=== PATIENT | male | born 1950 | race Caucasian/White ===

== ENCOUNTER → 2020-04-15 | Outpatient (BNVA) | payer MEDICARE, OTHER, SELFPAY | PROVIDERS: PCP Nurse Practitioner Family; Visit Provider Internal Medicine | DX: Z86.73 Personal history of transient ischemic attack (TIA), and cerebral infarction without residual deficits (principal) | CPT/HCPCS: 85610; 99211 ==

== ENCOUNTER → 2020-04-29 09:30 | Outpatient (BNVA) | payer MEDICARE, OTHER, SELFPAY | PROVIDERS: PCP Nurse Practitioner Family; Visit Provider Internal Medicine | DX: I63.9 Cerebral infarction, unspecified (principal); Z51.81 Encounter for therapeutic drug level monitoring; Z79.01 Long term (current) use of anticoagulants | CPT/HCPCS: 85610; 99211 ==

== ENCOUNTER 2020-05-03 09:44 | Outpatient (REF) | payer MEDICARE, OTHER, SELFPAY ==
--- NOTE | 2020-05-03 09:48 | CT_ITS ---
EXAMINATION: CT CHEST SCREENING CLINICAL INFORMATION: Lung screening. COMPARISON: CT chest 05/20/2019. TECHNIQUE: Multidetector volumetric CT imaging of the chest is performed without contrast using low dose technique. Additional 2D coronal and sagittal reformatted images and axial 3D maximum intensity projection (MIP) images are generated on the CT workstation. This CT examination was performed using dose optimization techniques as appropriate, variously including the following: *Automated exposure control *Adjustment of mA and/or kV according to patient size (this includes techniques or standardized protocols for targeted exams where dose is matched to indication/reason for exam; i.e. extremities or head) *Use of iterative reconstruction technique DLP: 238 mGy-cm FINDINGS: LUNGS: Hyperinflated lungs with emphysematous changes. There are bilateral apical pleural/parenchymal thickening, ground-glass attenuation and several nodules. The largest nodule left upper lobe posteriorly measures 5 mm and a 3 mm nodule right upper lobe axial image 14/4. Some of the nodules in the right lung apex have increased in size. Numerous cystic changes are seen in both lung apices. There are 2 mm calcified nodules left upper lobe image 162/6, right upper lobe image 222/6, noncalcified 3 mm ground-glass nodule right upper lobe image 206/6, a few more calcified nodules left lower lobe image 286/6, 2 mm nodule left lower lobe centrally image 310/6, 2 mm calcified nodule right lung base, axial image 492/6. MEDIASTINUM: The thyroid lobes are symmetrical and normal. The central trachea and the bronchi are widely patent. No abnormal size mediastinal or hilar lymph node seen. There are coronary artery calcifications present. No pericardial effusion seen. PLEURA: There is no pleural effusion. No pleural mass or thickening. AXILLA: Small shotty lymph nodes seen in the axilla. The largest lymph node right axilla measures 1 cm. Punctate calcifications seen in the left axilla. UPPER ABDOMEN: Visualized liver/spleen, pancreas and bilateral adrenal glands unremarkable. OSSEOUS STRUCTURES: No lytic or sclerotic process seen. CT/CT lung screening IMPRESSION: Chronic pleural/parenchymal changes in both lung apices with multiple pulmonary nodules, cyst and calcified granulomas. The nodules appear slightly more prominent than last exam. No new nodule seen. No acute consolidation. ASSESSMENT: Lung-RADS category 2: Benign RECOMMENDATION: Low dose annual CT chest.
== END 2020-05-03 09:45 | disposition home or self-care (01) ==
LOC: HO.CT 09:44
PROVIDERS: Visit Provider Surgery
DX: Z12.2 Encounter for screening for malignant neoplasm of respiratory organs (principal); F17.210 Nicotine dependence, cigarettes, uncomplicated
CPT/HCPCS: 71250

== ENCOUNTER → 2020-05-13 09:27 | Outpatient (BNVA) | payer MEDICARE, OTHER, SELFPAY | PROVIDERS: PCP Nurse Practitioner Family; Referring Provider Nurse Practitioner Family; Visit Provider Internal Medicine | DX: I63.9 Cerebral infarction, unspecified (principal); Z79.01 Long term (current) use of anticoagulants; Z51.81 Encounter for therapeutic drug level monitoring | CPT/HCPCS: 85610; 99211 ==

== ENCOUNTER → 2020-05-27 09:08 | Outpatient (BNVA) | payer MEDICARE, OTHER, SELFPAY | PROVIDERS: PCP Nurse Practitioner Family; Visit Provider Internal Medicine | DX: I63.9 Cerebral infarction, unspecified (principal); Z51.81 Encounter for therapeutic drug level monitoring; Z79.01 Long term (current) use of anticoagulants | CPT/HCPCS: 85610; 99211 ==

== ENCOUNTER → 2020-06-01 09:37 | Outpatient (BNVA) | payer MEDICARE, OTHER, SELFPAY | PROVIDERS: PCP Nurse Practitioner Family; Visit Provider Internal Medicine Cardiovascular Disease | DX: I48.0 Paroxysmal atrial fibrillation (principal); Q21.1 Atrial septal defect; I70.0 Atherosclerosis of aorta; Z45.09 Encounter for adjustment and management of other cardiac device; Z86.73 Personal history of transient ischemic attack (TIA), and cerebral infarction without residual deficits; Z79.01 Long term (current) use of anticoagulants; Z79.899 Other long term (current) drug therapy | CPT/HCPCS: 99212 ==

== ENCOUNTER → 2020-06-24 09:14 | Outpatient (BNVA) | payer MEDICARE, OTHER, SELFPAY | PROVIDERS: PCP Nurse Practitioner Family; Visit Provider Internal Medicine | DX: Z86.73 Personal history of transient ischemic attack (TIA), and cerebral infarction without residual deficits (principal); Z51.81 Encounter for therapeutic drug level monitoring; Z79.01 Long term (current) use of anticoagulants | CPT/HCPCS: 85610; 99211 ==

== ENCOUNTER → 2020-07-22 09:20 | Outpatient (BNVA) | payer MEDICARE, OTHER, SELFPAY | PROVIDERS: PCP Nurse Practitioner Family; Visit Provider Internal Medicine | DX: Z86.73 Personal history of transient ischemic attack (TIA), and cerebral infarction without residual deficits (principal); Z51.81 Encounter for therapeutic drug level monitoring; Z79.01 Long term (current) use of anticoagulants | CPT/HCPCS: 85610; 99211 ==

== ENCOUNTER 2020-07-22 09:46 | Outpatient (REF) | payer MEDICARE, OTHER, SELFPAY | END 2020-07-22 09:47 | disposition home or self-care (01) | LOC: HO.LAB 09:46 | PROVIDERS: Visit Provider Internal Medicine | DX: Z20.822 Contact with and (suspected) exposure to COVID-19 (principal) | CPT/HCPCS: 36415; C9803; U0003 ==

== ENCOUNTER → 2020-08-05 09:14 | Outpatient (BNVA) | payer MEDICARE, OTHER, SELFPAY | PROVIDERS: PCP Nurse Practitioner Family; Visit Provider Internal Medicine | DX: Z86.73 Personal history of transient ischemic attack (TIA), and cerebral infarction without residual deficits (principal); Z51.81 Encounter for therapeutic drug level monitoring; Z79.01 Long term (current) use of anticoagulants | CPT/HCPCS: 85610; 99211 ==

== ENCOUNTER 2020-08-15 13:40 | Emergency (ER) | payer MEDICARE, OTHER, SELFPAY ==
--- NOTE | ~2020-08-15 | CT_ITS ---
EXAMINATION: CT CERVICAL SPINE WITHOUT CONTRAST CLINICAL INFORMATION: Acute mental status change COMPARISON: Previous brain MRI May [address] from earlier the same day TECHNIQUE: Axial images through the cervical spine without contrast. Sagittal and coronal reconstructions on the technologist workstation were performed. This CT examination was performed using dose optimization techniques as appropriate, variously including the following: *Automated exposure control *Adjustment of mA and/or kV according to patient size (this includes techniques or standardized protocols for targeted exams where dose is matched to indication/reason for exam; i.e. extremities or head) *Use of iterative reconstruction technique DLP: 575 mGy-cm FINDINGS: There is a 4 mm posterior subluxation of C4 with respect to C3 and C5. This is seen on brain MRI May 2019 and appears unchanged. There is a 3 mm posterior subluxation of C5 with respect to C6. There is degenerative disc disease and spondylosis at C3-C4 C4-C5 and C5-C6. There is bilateral multilevel facet arthritis. There are degenerative changes at the C1 dens articulation. No fracture or dislocation is seen. Prevertebral soft tissues are normal. There is bilateral carotid calcification.There is a soft tissue opacification of the left mastoid air cells and middle ear. Right mastoid air cells and middle ear are clear. The left parotid gland has been removed. There are surgical clips in the left lateral neck. There is skin thickening of the left lateral neck and induration of the subcutaneous fat. This may represent post radiation change. Clinical correlation is recommended. There are emphysematous changes seen at the lung apices and severe biapical pleural and parenchymal scarring. There is a large area of hemorrhage in the visualized left temporal and occipital lobes. CT/CT cervical spine wo con IMPRESSION: Posterior subluxation of C4 with respect to C3 and C5 and posterior subluxation of C5 with respect to C6. This probably related to facet arthritis. No fracture or dislocation seen. Postsurgical changes following resection of the left parotid gland. Postsurgical changes to the left lateral neck. Skin thickening and induration of the subcutaneous fat of the left lateral neck, question representing post radiation change. Clinical correlation recommended. Left otomastoiditis. Severe emphysema and biapical pleural parenchymal scarring.
--- NOTE | ~2020-08-15 | CT_ITS ---
EXAMINATION: CT HEAD WITHOUT CONTRAST CLINICAL INFORMATION: AMS on Coumadin. COMPARISON: CT brain 06/04/2019 TECHNIQUE: Contiguous axial imaging was performed from the skull base to vertex without intravenous administration of contrast. This CT examination was performed using dose optimization techniques as appropriate, variously including the following: *Automated exposure control *Adjustment of mA and/or kV according to patient size (this includes techniques or standardized protocols for targeted exams where dose is matched to indication/reason for exam; i.e. extremities or head) *Use of iterative reconstruction technique DLP: 1323 mGy-cm FINDINGS: There is a large left parietal/occipital and temporal lobe bleed with moderate left to right 8-9 mm shift. There is moderate compression of occipital horn left lateral ventricle and temporal horn left lateral ventricle. Small left frontal convexity precentral gyrus subarachnoid bleed is suspected. There is moderate compression of lateral ventricles with shift. There is no posterior fossa bleed visualized. Bone windows reveal no calvarial abnormality. There is complete opacification of left mastoid sinus is visualized paranasal sinuses are well-aerated. CT/CT head/brain wo con IMPRESSION: Large left parietal, occipital and posterior temporal lobe hematoma with moderate [id number] midline shift. There are 3 known intracranial aneurysm seen the largest of the left MCA bifurcation as was noted on previous CT brain 05/27/2019. The left frontal lobe convexity subarachnoid hemorrhage. Moderate compression on left occipital horn and mild compression on the temporal horn of left lateral ventricle. Results were discussed with Dr. Sun Acevedo in the ER by phone at 2:34 PM.
--- NOTE | ~2020-08-15 | XR_ITS ---
EXAMINATION: XR CHEST CLINICAL INFORMATION: Intubation COMPARISON: Previous chest x-ray most recent December 2015 TECHNIQUE: Frontal view of the chest was obtained. FINDINGS: There is an endotracheal tube 3 cm above the loren. The cardiac and mediastinal contours are normal. There is biapical pleural and parenchymal scarring. The lungs are otherwise clear. There is no pleural effusion or pneumothorax. There are surgical clips in the left lower neck. There is a surgical clip in the left axilla. XR/XR chest 1V IMPRESSION: Endotracheal tube 3 cm above the loren.
--- NOTE | 2020-08-15 14:00 | ED_ITS ---
HPI - Altered Mental Status General Stated Complaint: LETHARGY Time Seen by Provider: 08/15/20 13:59 Source: patient, EMS and old records reviewed Mode of arrival: EMS Limitations: altered mental status History of Present Illness HPI narrative: 70 yo male with PAF, CVA, PFO on coumadin seen last night - today son noted he was altered, normally lives alone - sent to ED for AMS MD complaint: altered mental status Onset (ago): day(s) (1) Timing confirmed by: family member Severity: severe Consistency of symptoms: getting Worse Context: unknown Associated symptoms: denies other symptoms Related Data Home Medications Medication Instructions Recorded Confirmed fluticasone 500 mcg-salmeterol 50 1 inh PO BID 06/01/20 08/15/20 mcg/dose blistr powdr for inhalation docusate sodium 100 mg PO BID 08/15/20 08/15/20 warfarin 4 mg PO SUTUWETHFRSA 08/15/20 08/15/20 warfarin 6 mg PO MO 08/15/20 08/15/20 Previous Rx's Medication Instructions Recorded atorvastatin 20 mg tablet 20 mg PO BEDTIME #90 tab 06/23/20 albuterol sulfate 90 mcg/actuation 2 puff PO QID PRN 30 Days #8.5 g 08/04/20 aerosol inhaler tiotropium bromide 18 mcg capsule 1 cap INHALATION DAILY 90 Days #90 08/04/20 with inhalation device inh Allergies Allergy/AdvReac Type Severity Reaction Status Date / Time oxycodone [OXYCODONE] Allergy Severe NAUSEA & Verified 08/05/20 09:21 VOMITING codeine [CODEINE] Allergy Intermediate NAUSEA & Verified 08/05/20 09:21 VOMITING Review of Systems Review of Systems: ROS unable to be obtained due to altered mental status [facility] Past Medical History Source: old records reviewed Medical History COPD (chronic obstructive pulmonary disease) CVA (cerebral vascular accident) H/O Lamar's palsy Paroxysmal atrial fibrillation PFO (patent foramen ovale) Status post placement of implantable loop recorder Surgical History H/O knee surgery H/O skin graft H/O Spinal surgery History of hip replacement History of left mastectomy History of parotidectomy Family History Family History Mother No problems noted. Father No problems noted. Social History Social History Smoking Status: Current every day smoker Cigarettes Per Day: 40 Advance Directives: No Advance Directives Information Provided: No Physical Exam Vital Signs: Vital Signs: Last Vital Signs Pulse 75 08/15/20 15:40 Resp 18 08/15/20 15:40 BP 155/91 H 08/15/20 15:40 Appearance: Somnolent, oriented to place and person, active vomiting, pale, moderate acute distress. Eyes: R pupil reactive 4mm, L pupil reactive 3mm ENT:dried vomit noted, difficulty clearing secretions, no hemotympanum, has scrape on left ear scant ooze near tragus Neck: Normal inspection. Neck supple. CVS: irregular heart rate and rhythm. Pulses normal. Respiratory: concern for airway protection Breath sounds dminished, coarse lung sounds Abdomen: Soft and nontender. Skin: Skin cool and pale. Normal skin color. Normal skin turgor. Extremities: No lower extremity edema. No calf ttp Neuro: Oriented X2 diffusely weak, L sided facial droop, altered, GCS 14/13 - confused, opens eyes to verbal stimuli. No sensory deficit. Course Course Course Narrative: large left sided ICH with shift noted on initial CT - INR 3.0 Vit K, FFP, Kcentra ordered based off 70kg and INR - plan to intubate given periods of somnolence as well as vomiting and he does not seem to be clearing with his cough GCS 14/13, follows commands, opens eyes to verbal, confused. BP 190 IV nicardipine was ordered call to [facility] [place] [place] for transfer [id number] son sudheer Angel [phone] discussion with [facility] [place] [place] ICU call back 312pm - neuro critical care to be called - no accepting attending yet no acute findings on CXR : ETT 3cm above loren CT head: Large left parietal, occipital and posterior temporal lobe hematoma with moderate [id number] midline shift. There are 3 known intracranial aneurysm seen the largest of the left MCA bifurcation as was noted on previous CT brain 05/27/2019. The left frontal lobe convexity subarachnoid hemorrhage. Moderate compression on left occipital horn and mild compression on the temporal horn of left lateral ventricle. Procedures Intubation Time out performed: Yes sedative: Etomidate Mg Given: 20 paralytic: Rocuronium Mg Given: 75 Laryngoscope: Mcarthur ET Tube Size: 8 ET Tube Uncuffed: Yes Tube Secured Depth (cm): 24 Tube Secured Location: teeth Tube Placement Confirmation: visualized tube passing through cords, equal breath sounds bilaterally, no breath sounds over epigastrium and confirmation by capnometry Patient Tolerated Procedure: well Intubation Complications: none MDM - Altered Mental Status MDM Narrative Medical decision making narrative: 70 yo male known stroke on coumadin has PFO and afib - lives alone, son saw him last night noted he was altered today - EMS called, on arrival patiagueda was brought into hallway bed vomiting and confused, had pattern of deep breaths - he is GCS 14 on arrival but then has brief periods when he seems to fall asleep - I sent him over to CT scan immediately as concern for ICH, labs, IV zofran, very coarse cough and vomiting concern for airway protection as well. Lab Data Result diagrams: 08/15/20 14:46 08/15/20 14:46 Labs: Lab Results 08/15/20 08/15/20 08/15/20 Range/Units 14:22 14:26 14:46 WBC 15.4 H (4.8-10.8) X10*3/uL RBC 4.19 L (4.60-5.80) X10*6/uL Hgb 13.9 L (14.0-18.0) g/dl Hct 40.1 L (42-52) % MCV 95.7 (80-98) fL MCH 33.2 H (27.0-33.0) pg MCHC 34.7 (31.0-36.0) g/dl RDW 12.5 (11.0-16.0) % Plt Count 281 (160-400) X10*3/uL MPV 9.1 L (9.4-12.4) fL Immature Gran % (Auto) 0.4 (0.0-0.4) % Neut % (Auto) 87.6 H (45-73) % Lymph % (Auto) 4.7 L (20-40) % Shelby % (Auto) 5.9 (2-11) % Eos % (Auto) 0.6 (0-4) % Baso % (Auto) 0.8 (0-2) % Lymph # (Auto) 0.7 L (1.2-4.9) X10*3/uL Shelby # (Auto) 0.9 (0.1-1.2) X10*3/uL Eos # (Auto) 0.1 (0.0-0.4) X10*3/uL Baso # (Auto) 0.1 (0.0-0.2) X10*3/uL Abs Immat Gran (auto) 0.06 H (0.00-0.03) X10*3/uL Absolute Neuts (auto) 13.5 H (2.0-8.3) X10*3/uL Absolute Nucleated RBC 0.000 (0.0-0.012) X10*3/uL Nucleated RBC % (auto) 0.0 (0.0-0.2) /100WBC PT (10.8-13.0) SEC Whole Blood PT 36.2 H (11.1-13.5) sec INR (0.9-1.1) Whole Blood INR 3.0 H (0.9-1.1) APTT (24.1-38.0) SEC VBG pH (7.32-7.43) VBG pCO2 mmHg VBG pO2 mmHg VBG HCO3 mmol/L VBG O2 Saturation % VBG Base Excess mmol/L Sodium (135-145) mmol/L Potassium (3.3-5.1) mmol/L Chloride (96-108) mmol/L Carbon Dioxide (22-29) mmol/L Anion Gap (12-20) BUN (9-16) mg/dL Creatinine (0.5-1.4) mg/dL Estim Creat Clear Calc Estimated GFR POC Glucose 121 H (60-115) mg/dL Random Glucose (60-115) mg/dL Lactic Acid (0.5-2.0) mmol/L Calcium (8.4-10.2) mg/dL Magnesium (1.6-2.6) mg/dL Total Bilirubin (0.0-1.0) mg/dL Direct Bilirubin (0.0-0.5) mg/dL AST (5-37) U/L ALT (0-40) U/L Alkaline Phosphatase (39-117) U/L Ammonia (13-55) umol/L Troponin I High Sens (<3.5-35.0) ng/L B-Natriuretic Peptide (<100) pg/mL Total Protein (6.5-8.0) g/dL Albumin (3.5-5.0) g/dL Lipase (8-78) U/L Ethyl Alcohol mg/dL COVID-19 (MACKENZIE) (Negative) COVID-19 Clin Com Blood Type Antibody Screen 08/15/20 08/15/20 08/15/20 Range/Units 14:46 14:46 14:46 WBC (4.8-10.8) X10*3/uL RBC (4.60-5.80) X10*6/uL Hgb (14.0-18.0) g/dl Hct (42-52) % MCV (80-98) fL MCH (27.0-33.0) pg MCHC (31.0-36.0) g/dl RDW (11.0-16.0) % Plt Count (160-400) X10*3/uL MPV (9.4-12.4) fL Immature Gran % (Auto) (0.0-0.4) % Neut % (Auto) (45-73) % Lymph % (Auto) (20-40) % Shelby % (Auto) (2-11) % Eos % (Auto) (0-4) % Baso % (Auto) (0-2) % Lymph # (Auto) (1.2-4.9) X10*3/uL Shelby # (Auto) (0.1-1.2) X10*3/uL Eos # (Auto) (0.0-0.4) X10*3/uL Baso # (Auto) (0.0-0.2) X10*3/uL Abs Immat Gran (auto) (0.00-0.03) X10*3/uL Absolute Neuts (auto) (2.0-8.3) X10*3/uL Absolute Nucleated RBC (0.0-0.012) X10*3/uL Nucleated RBC % (auto) (0.0-0.2) /100WBC PT (10.8-13.0) SEC Whole Blood PT (11.1-13.5) sec INR (0.9-1.1) Whole Blood INR (0.9-1.1) APTT (24.1-38.0) SEC VBG pH (7.32-7.43) VBG pCO2 mmHg VBG pO2 mmHg VBG HCO3 mmol/L VBG O2 Saturation % VBG Base Excess mmol/L Sodium 131 L (135-145) mmol/L Potassium 4.2 (3.3-5.1) mmol/L Chloride 98 (96-108) mmol/L Carbon Dioxide 25 (22-29) mmol/L Anion Gap 12 (12-20) BUN 8 L (9-16) mg/dL Creatinine 0.74 (0.5-1.4) mg/dL Estim Creat Clear Calc TNP Estimated GFR > 60 POC Glucose (60-115) mg/dL Random Glucose 122 H (60-115) mg/dL Lactic Acid (0.5-2.0) mmol/L Calcium 9.0 (8.4-10.2) mg/dL Magnesium 2.0 (1.6-2.6) mg/dL Total Bilirubin 0.4 (0.0-1.0) mg/dL Direct Bilirubin 0.2 (0.0-0.5) mg/dL AST 25 (5-37) U/L ALT 14 (0-40) U/L Alkaline Phosphatase 72 (39-117) U/L Ammonia 40 (13-55) umol/L Troponin I High Sens (<3.5-35.0) ng/L B-Natriuretic Peptide 41 (<100) pg/mL Total Protein 6.6 (6.5-8.0) g/dL Albumin 4.1 (3.5-5.0) g/dL Lipase (8-78) U/L Ethyl Alcohol mg/dL COVID-19 (MACKENZIE) (Negative) COVID-19 Clin Com Blood Type Antibody Screen 08/15/20 08/15/20 08/15/20 Range/Units 14:46 14:46 14:46 WBC (4.8-10.8) X10*3/uL RBC (4.60-5.80) X10*6/uL Hgb (14.0-18.0) g/dl Hct (42-52) % MCV (80-98) fL MCH (27.0-33.0) pg MCHC (31.0-36.0) g/dl RDW (11.0-16.0) % Plt Count (160-400) X10*3/uL MPV (9.4-12.4) fL Immature Gran % (Auto) (0.0-0.4) % Neut % (Auto) (45-73) % Lymph % (Auto) (20-40) % Shelby % (Auto) (2-11) % Eos % (Auto) (0-4) % Baso % (Auto) (0-2) % Lymph # (Auto) (1.2-4.9) X10*3/uL Shelby # (Auto) (0.1-1.2) X10*3/uL Eos # (Auto) (0.0-0.4) X10*3/uL Baso # (Auto) (0.0-0.2) X10*3/uL Abs Immat Gran (auto) (0.00-0.03) X10*3/uL Absolute Neuts (auto) (2.0-8.3) X10*3/uL Absolute Nucleated RBC (0.0-0.012) X10*3/uL Nucleated RBC % (auto) (0.0-0.2) /100WBC PT 35.4 H (10.8-13.0) SEC Whole Blood PT (11.1-13.5) sec INR 2.9 H (0.9-1.1) Whole Blood INR (0.9-1.1) APTT 57.5 H (24.1-38.0) SEC VBG pH (7.32-7.43) VBG pCO2 mmHg VBG pO2 mmHg VBG HCO3 mmol/L VBG O2 Saturation % VBG Base Excess mmol/L Sodium (135-145) mmol/L Potassium (3.3-5.1) mmol/L Chloride (96-108) mmol/L Carbon Dioxide (22-29) mmol/L Anion Gap (12-20) BUN (9-16) mg/dL Creatinine (0.5-1.4) mg/dL Estim Creat Clear Calc Estimated GFR POC Glucose (60-115) mg/dL Random Glucose (60-115) mg/dL Lactic Acid 0.9 (0.5-2.0) mmol/L Calcium (8.4-10.2) mg/dL Magnesium (1.6-2.6) mg/dL Total Bilirubin (0.0-1.0) mg/dL Direct Bilirubin (0.0-0.5) mg/dL AST (5-37) U/L ALT (0-40) U/L Alkaline Phosphatase (39-117) U/L Ammonia (13-55) umol/L Troponin I High Sens < 3.5 (<3.5-35.0) ng/L B-Natriuretic Peptide (<100) pg/mL Total Protein (6.5-8.0) g/dL Albumin (3.5-5.0) g/dL Lipase (8-78) U/L Ethyl Alcohol mg/dL COVID-19 (MACKENZIE) (Negative) COVID-19 Clin Com Blood Type Antibody Screen 08/15/20 08/15/20 08/15/20 Range/Units 14:46 14:46 14:46 WBC (4.8-10.8) X10*3/uL RBC (4.60-5.80) X10*6/uL Hgb (14.0-18.0) g/dl Hct (42-52) % MCV (80-98) fL MCH (27.0-33.0) pg MCHC (31.0-36.0) g/dl RDW (11.0-16.0) % Plt Count (160-400) X10*3/uL MPV (9.4-12.4) fL Immature Gran % (Auto) (0.0-0.4) % Neut % (Auto) (45-73) % Lymph % (Auto) (20-40) % Shelby % (Auto) (2-11) % Eos % (Auto) (0-4) % Baso % (Auto) (0-2) % Lymph # (Auto) (1.2-4.9) X10*3/uL Shelby # (Auto) (0.1-1.2) X10*3/uL Eos # (Auto) (0.0-0.4) X10*3/uL Baso # (Auto) (0.0-0.2) X10*3/uL Abs Immat Gran (auto) (0.00-0.03) X10*3/uL Absolute Neuts (auto) (2.0-8.3) X10*3/uL Absolute Nucleated RBC (0.0-0.012) X10*3/uL Nucleated RBC % (auto) (0.0-0.2) /100WBC PT (10.8-13.0) SEC Whole Blood PT (11.1-13.5) sec INR (0.9-1.1) Whole Blood INR (0.9-1.1) APTT (24.1-38.0) SEC VBG pH (7.32-7.43) VBG pCO2 mmHg VBG pO2 mmHg VBG HCO3 mmol/L VBG O2 Saturation % VBG Base Excess mmol/L Sodium (135-145) mmol/L Potassium (3.3-5.1) mmol/L Chloride (96-108) mmol/L Carbon Dioxide (22-29) mmol/L Anion Gap (12-20) BUN (9-16) mg/dL Creatinine (0.5-1.4) mg/dL Estim Creat Clear Calc Estimated GFR POC Glucose (60-115) mg/dL Random Glucose (60-115) mg/dL Lactic Acid (0.5-2.0) mmol/L Calcium (8.4-10.2) mg/dL Magnesium (1.6-2.6) mg/dL Total Bilirubin (0.0-1.0) mg/dL Direct Bilirubin (0.0-0.5) mg/dL AST (5-37) U/L ALT (0-40) U/L Alkaline Phosphatase (39-117) U/L Ammonia (13-55) umol/L Troponin I High Sens (<3.5-35.0) ng/L B-Natriuretic Peptide (<100) pg/mL Total Protein (6.5-8.0) g/dL Albumin (3.5-5.0) g/dL Lipase 13 (8-78) U/L Ethyl Alcohol < 10 mg/dL COVID-19 (MACKENZIE) (Negative) COVID-19 Clin Com Blood Type A Positive Antibody Screen NEGATIVE 08/15/20 08/15/20 Range/Units 14:46 14:52 WBC (4.8-10.8) X10*3/uL RBC (4.60-5.80) X10*6/uL Hgb (14.0-18.0) g/dl Hct (42-52) % MCV (80-98) fL MCH (27.0-33.0) pg MCHC (31.0-36.0) g/dl RDW (11.0-16.0) % Plt Count (160-400) X10*3/uL MPV (9.4-12.4) fL Immature Gran % (Auto) (0.0-0.4) % Neut % (Auto) (45-73) % Lymph % (Auto) (20-40) % Shelby % (Auto) (2-11) % Eos % (Auto) (0-4) % Baso % (Auto) (0-2) % Lymph # (Auto) (1.2-4.9) X10*3/uL Shelby # (Auto) (0.1-1.2) X10*3/uL Eos # (Auto) (0.0-0.4) X10*3/uL Baso # (Auto) (0.0-0.2) X10*3/uL Abs Immat Gran (auto) (0.00-0.03) X10*3/uL Absolute Neuts (auto) (2.0-8.3) X10*3/uL Absolute Nucleated RBC (0.0-0.012) X10*3/uL Nucleated RBC % (auto) (0.0-0.2) /100WBC PT (10.8-13.0) SEC Whole Blood PT (11.1-13.5) sec INR (0.9-1.1) Whole Blood INR (0.9-1.1) APTT (24.1-38.0) SEC VBG pH 7.45 H (7.32-7.43) VBG pCO2 31 mmHg VBG pO2 151 mmHg VBG HCO3 22 mmol/L VBG O2 Saturation 99.0 % VBG Base Excess 99.0 mmol/L Sodium (135-145) mmol/L Potassium (3.3-5.1) mmol/L Chloride (96-108) mmol/L Carbon Dioxide (22-29) mmol/L Anion Gap (12-20) BUN (9-16) mg/dL Creatinine (0.5-1.4) mg/dL Estim Creat Clear Calc Estimated GFR POC Glucose (60-115) mg/dL Random Glucose (60-115) mg/dL Lactic Acid (0.5-2.0) mmol/L Calcium (8.4-10.2) mg/dL Magnesium (1.6-2.6) mg/dL Total Bilirubin (0.0-1.0) mg/dL Direct Bilirubin (0.0-0.5) mg/dL AST (5-37) U/L ALT (0-40) U/L Alkaline Phosphatase (39-117) U/L Ammonia (13-55) umol/L Troponin I High Sens (<3.5-35.0) ng/L B-Natriuretic Peptide (<100) pg/mL Total Protein (6.5-8.0) g/dL Albumin (3.5-5.0) g/dL Lipase (8-78) U/L Ethyl Alcohol mg/dL COVID-19 (MACKENZIE) Negative (Negative) COVID-19 Clin Com See Note Blood Type Antibody Screen Critical Care Time Critical Care Time Critical Care Time: Yes Total Critical Care Time: 90 Attestation: IV medications, INR reversal, consult, transfer to [facility] [place] [place], IV BP medications. I attest to this time spent taking care of the patient Discharge Plan Discharge Clinical Impression: Acute intracerebral hemorrhage, Acute alteration in mental status Patient Disposition: Xfer [facility] Transfer Details: [facility] Prescriptions: No Action atorvastatin 20 mg tablet 20 mg PO BEDTIME Qty: 90 RF: 2 warfarin 4 mg Tablet 4 mg PO SUTUWETHFRSA RF: 0 docusate sodium 100 mg Capsule 100 mg PO BID RF: 0 warfarin 4 mg tablet 6 mg PO MO RF: 0 albuterol sulfate 90 mcg/actuation HFA aerosol inhaler 2 puff PO QID PRN (Reason: bronchospasm) 30 Days Qty: 8.5 RF: 8 Spiriva with HandiHaler 18 mcg capsule, w/inhalation device 1 cap inhalation DAILY 90 Days Qty: 90 RF: 6 fluticasone propion-salmeterol 500-50 mcg/dose blister with device 1 inh PO BID RF: 0
[2020-08-15] MEDS: ondansetron HCL 4 MG/2 ML VIAL IVPUSH (14:15)
[2020-08-15 14:27] LABS: Glucose, Whole Blood 121 mg/dL (60-115)
[2020-08-15 14:29] LABS: Prothrombin Time Whole Bld POC 36.2 sec (11.1-13.5)
[2020-08-15] MEDS: Etomidate 20 MG/10 ML VIAL IVPUSH (14:45)
--- NOTE | 2020-08-15 14:45 | PC.NURSE ---
CALL PLACED @ [address] IRELAND TO [facility] PT [place] LINE [phone] INDIO ANSWERS, TAKES PT INFO, SPPEAKS WITH DR IRELAND AND SAYS THEY WILL CALL US BACK
[2020-08-15] MEDS: niCARdipine HCL 25 MG in 0.9 % Sodium Chloride 250 ML 52 MG IVCONT (14:46)
[2020-08-15] MEDS: Rocuronium Bromide 50 MG/5 ML VIAL 75 MG IVPUSH (14:46)
[2020-08-15] MEDS: fentaNYL citrate/NS 1,000 MCG/100 ML PLAST..BAG 2.5 MCG IVCONT (14:50)
[2020-08-15 14:55] LABS: MANUAL DIFF FLAG NO
[2020-08-15 14:57] LABS: Basophils Absolute Auto 0.1 X10*3/uL (0.0-0.2); Basophils Percent Auto 0.8 % (0-2); Eosinophils Absolute Auto 0.1 X10*3/uL (0.0-0.4); Eosinophils Percent Auto 0.6 % (0-4); Hematocrit 40.1 % (42-52); Hemoglobin 13.9 g/dl (14.0-18.0); Imm Gran Abs Auto 0.06 X10*3/uL (0.00-0.03); Imm Gran Pct Auto 0.4 % (0.0-0.4); Lymphocytes Absolute Auto 0.7 X10*3/uL (1.2-4.9); Lymphocytes Percent Auto 4.7 % (20-40); Mean Corpuscular HGB Conc 34.7 g/dl (31.0-36.0); Mean Corpuscular Hemoglobin 33.2 pg (27.0-33.0); Mean Corpuscular Volume 95.7 fL (80-98); Mean Platelet Volume 9.1 fL (9.4-12.4); Monocytes Absolute Auto 0.9 X10*3/uL (0.1-1.2); Monocytes Percent Auto 5.9 % (2-11); Neutrophils Absolute Auto 13.5 X10*3/uL (2.0-8.3); Neutrophils Percent Auto 87.6 % (45-73); Platelet Count 281 X10*3/uL (160-400); Red Blood Count 4.19 X10*6/uL (4.60-5.80); Red Cell Distribution Width 12.5 % (11.0-16.0); White Blood Count 15.4 X10*3/uL (4.8-10.8)
[2020-08-15 15:00] LABS: PCO2 VBG 31 mmHg; pH VBG 7.45 (7.32-7.43)
[2020-08-15 15:01] VITALS: BP 181/97; PULSE 80; O2SAT 100
[2020-08-15 15:01] LABS: HCO3 VBG 22 mmol/L; PO2 VBG 151 mmHg
[2020-08-15] MEDS: Hum Prothrombin Cplx(PCC)4Fact 2,000 UNIT in Container,Empty 0 ML 480 UNIT IV (15:01)
[2020-08-15 15:02] LABS: INTERNATIONAL NORM RATIO 2.9 (0.9-1.1); Prothrombin Time 35.4 SEC (10.8-13.0)
[2020-08-15 15:05] LABS: Partial Thromboplastin Time 57.5 SEC (24.1-38.0)
[2020-08-15 15:12] LABS: Ammonia 40 umol/L (13-55)
[2020-08-15 15:16] LABS: Lactic Acid 0.9 mmol/L (0.5-2.0)
[2020-08-15 15:18] LABS: Ethanol < 10 mg/dL
[2020-08-15 15:22] LABS: Alanine Aminotransferase 14 U/L (0-40); Albumin Level 4.1 g/dL (3.5-5.0); Alkaline Phosphatase 72 U/L (39-117); Anion Gap 12 (12-20); Aspartate Amino Transferase 25 U/L (5-37); Bilirubin Direct 0.2 mg/dL (0.0-0.5); Bilirubin Total 0.4 mg/dL (0.0-1.0); Blood Urea Nitrogen 8 mg/dL (9-16); Carbon Dioxide 25 mmol/L (22-29); Chloride 98 mmol/L (96-108); Estimated Glomerular Filt Rate > 60; Glucose Random 122 mg/dL (60-115); Potassium 4.2 mmol/L (3.3-5.1); Sodium 131 mmol/L (135-145); Total Protein 6.6 g/dL (6.5-8.0)
[2020-08-15] MEDS: Midazolam HCl/NS 50 MG/50 ML PLAST..BAG IVCONT (15:22)
[2020-08-15] MEDS: Phytonadione (Vit K1) 10 MG in 0.9 % Sodium Chloride 50 ML 51 MG IV (15:22)
[2020-08-15 15:24] LABS: Lipase 13 U/L (8-78)
[2020-08-15 15:25] LABS: B Type Natriuretic Peptide 41 pg/mL (<100)
[2020-08-15 15:26] LABS: Troponin-I High Sensitivity < 3.5 ng/L (<3.5-35.0)
[2020-08-15 15:35] LABS: IDNOW Serial# 9DD0AD1C
[2020-08-15 15:36] LABS: COVID-19 Test Negative (Negative)
[2020-08-15 15:40] VITALS: BP 155/91; PULSE 75; RESP 18
[2020-08-15 15:59] VITALS: BP 165/77; PULSE 76; RESP 18
--- NOTE | 2020-08-15 16:00 | PC.NURSE ---
Addendum entered by Malina Stone 08/15/20 17:18: 15:22 versed was started at 2 Original Note: Patient arrived at approx 1340, ems stated that the patient was alert but not his baseline per his son, upon speaking with the patient he was alert to self, not wanting to answer questions, vitals were obtained 186/93np, pulse 61. rr 16, 99% room air, temp 97.8. Patient had left gaze and was vomiting. 1355 Charge nurse was notified that the patient needed to be moved to a room with a spool sander, poc's obtained [address] scan, and moved over from stretcher to ct scanner and began vomiting 1415- 4 mg zofran given 1430- patient moved from ct scan to room 5, three 18G IVs inserted, labs drawn, spool sander applied, 191/86, p 81, o2 92%, rr 15 1435- decision made to intubate patient 1444- bp 181/87, p 74, 98% r/a, rr 15 1445- 20 mg ivp etomidate given 1446- 75mg rocuronium given ivp, nicardipine drip started @5 1446- patient intubated, 24@ lip, 8.0, vent settings- 18/450/30%, 5-peep, ET 32 1450- cxr performedm, fentanyl drip started at 25mcg/hr 1459- bp 181/91, p 83, rr 18- vented 1504- bp 174/100, p 83, rr 18, 100%- vented 1509- bp 169/110, p 93. rr 18, 100%- vented 1510- kcentra started 1512- bp 176/89, p 92, 100%- vented, rr 18, nicardipine titrated up to 7.5 1514- bp 182/87, p 88, 100%-vented, rr 18 1519- bp 166/96, p 84, 100% vebted, rr 18 1522 phytonadine started 1530- bp 154/79, p 77, rr 18, 100% vented 1534- 152/74bp, 77p, 100%-vented, rr 18 1539- bp 155/91, p 76, 100% vented, rr 18 1544- FFP hung- bp 154/77, hr 79, 100% vented, rr 18 1549- bp 165/80, hr 79, 100% r/a, rr 18 1559- bp 165/77, p 83, 100%-vented, rr 18 1606- FFP end- bp169/81, hr 90, 100%-vented, rr 18 1610- ems arrival for txfr to [facility] 1610- report given to ems, vitals to discharge 169/81, hr 90, 100% vented, 18 rr 1615- pt being transported to [facility]- called [phone] to give nurse to nurse, litigation legal secretary put me on hold, came back and stated they would call us back
--- NOTE | 2020-08-15 16:05 | MHC.STROKE ---
ARRIVED VIA EMS AT 1340 C/O LETHARGY SINCE YESTERDAY. [facility] DATE: 08/14/20, UNKNOWN TIME. CT HEAD 1414, LEFT PARIETAL OCCIPITAL HEMORRHAGE. ON WARFARIN INR 3.0, KCENTRA, VIT K, FFP, ORDERED, LAB INR 2.9 GOAL FOR SBP 140-160 MAP 90-120. INTUBATED, FAILED SWALLOW SCREEN, NPO, PLAN FOR TRANSFER TO [facility]. DISC ATTACHED, [facility] SENT. PMH: AIS 2019, PFO, AFIB. COPD. ACCEPTED AND TRANSFERRED AT 1555.
[2020-08-15 16:27] VITALS: BP 180/88; BP 186/93; PULSE 61; PULSE 75; RESP 16; TEMP 36.6; O2SAT 99; BMI 22.6
== END 2020-08-15 16:27 | disposition short-term general hospital (02) ==
PROVIDERS: Emergency Provider Emergency Medicine; PCP Nurse Practitioner Family
DX: I61.9 Nontraumatic intracerebral hemorrhage, unspecified (principal); R41.82 Altered mental status, unspecified; Z20.822 Contact with and (suspected) exposure to COVID-19; F17.210 Nicotine dependence, cigarettes, uncomplicated; J44.9 Chronic obstructive pulmonary disease, unspecified; I48.0 Paroxysmal atrial fibrillation; Z79.01 Long term (current) use of anticoagulants; Z86.73 Personal history of transient ischemic attack (TIA), and cerebral infarction without residual deficits
CPT/HCPCS: 31500; 36415; 36430; 70450; 71045; 72125; 80048; 80076; 80320; 82140; 82803; 82947; 83605; 83690; 83735; 83880; 84484; 85025; 85610; 85730; 86850; 86900; 86901; 86927; 87040; 87635; 96365; 96366; 96375; 99285; 99291; 99292; C9132; J2250; J2405; J3010; J3430; P9017